=== PATIENT | female | born 1975 | race Caucasian/White ===

== ENCOUNTER 2018-03-02 07:00 | Outpatient (CLI) | payer OTHER | END 2018-03-02 10:00 | disposition home or self-care (01) | LOC: MAMO-SONO 07:00 | DX: Z12.31 Encounter for screening mammogram for malignant neoplasm of breast (principal); N60.22 Fibroadenosis of left breast; R10.2 Pelvic and perineal pain ==

== ENCOUNTER 2018-03-02 09:03 | Outpatient (CLI) | payer OTHER | END 2018-03-02 09:18 | disposition home or self-care (01) | LOC: LAB 09:03 → SONOGRAMA 09:03 → LAB 09:18 | DX: R10.2 Pelvic and perineal pain (principal) ==

== ENCOUNTER 2018-03-05 09:52 | Outpatient (CLI) | payer OTHER | END 2018-03-05 09:58 | disposition home or self-care (01) | LOC: SONOGRAMA 09:52 | DX: N60.42 Mammary duct ectasia of left breast (principal) ==

== ENCOUNTER 2018-04-09 12:11 | Outpatient (CLI) | payer OTHER | END 2018-04-09 12:15 | disposition home or self-care (01) | LOC: SONOGRAMA 12:11 | DX: N60.11 Diffuse cystic mastopathy of right breast (principal); N60.12 Diffuse cystic mastopathy of left breast; N63.22 Unspecified lump in the left breast, upper inner quadrant ==

== ENCOUNTER → 2019-05-30 | Outpatient (CLI) | payer OTHER | END | disposition home or self-care (01) | LOC: MAMO-SONO 08:45 | DX: Z12.31 Encounter for screening mammogram for malignant neoplasm of breast (principal); Z87.898 Personal history of other specified conditions; N60.11 Diffuse cystic mastopathy of right breast; N60.12 Diffuse cystic mastopathy of left breast; N60.22 Fibroadenosis of left breast ==

== ENCOUNTER 2021-02-05 09:17 | Outpatient (CLI) | payer OTHER | END 2021-02-05 09:28 | disposition home or self-care (01) | LOC: MAMO-SONO 09:17 | PROVIDERS: ATTEND Obstetrics & Gynecology | DX: N60.11 Diffuse cystic mastopathy of right breast (principal); Z12.31 Encounter for screening mammogram for malignant neoplasm of breast ==

== ENCOUNTER 2021-06-03 09:32 | Outpatient (CLI) | payer OTHER | END 2021-06-03 10:04 | disposition home or self-care (01) | LOC: SONOGRAMA 09:32 | PROVIDERS: ATTEND Surgery | DX: D24.2 Benign neoplasm of left breast (principal); N60.11 Diffuse cystic mastopathy of right breast; N60.12 Diffuse cystic mastopathy of left breast ==

== ENCOUNTER 2021-09-01 10:46 | Outpatient (CLI) | payer OTHER | END 2021-09-01 10:56 | disposition home or self-care (01) | LOC: SONOGRAMA 10:46 | DX: N93.9 Abnormal uterine and vaginal bleeding, unspecified (principal) ==

== ENCOUNTER 2021-11-24 05:38 | Day surgery (SDC) | payer OTHER ==
[~2021-11-24 05:38] MED LIST: LAMOTRIGINE100 MG PO
== END 2021-11-24 15:45 | disposition home or self-care (01) ==
LOC: CIR.AMB 05:38
PROVIDERS: ATTEND Obstetrics & Gynecology
DX: D27.1 Benign neoplasm of left ovary (principal); Z20.822 Contact with and (suspected) exposure to COVID-19; I10 Essential (primary) hypertension

== ENCOUNTER 2022-03-24 10:24 | Outpatient (CLI) | payer OTHER | END 2022-03-24 11:01 | disposition home or self-care (01) | LOC: MAMO-SONO 10:24 | PROVIDERS: ATTEND Surgery | DX: N60.11 Diffuse cystic mastopathy of right breast (principal); N60.12 Diffuse cystic mastopathy of left breast ==

== ENCOUNTER → 2022-07-03 | Emergency (ER) | payer OTHER ==
[~2022-07-03] VITALS: Ht 165.1 cm; Wt 63.5 kg
[~2022-07-03] MED LIST changes: +KETO10TA2 PO; +ORPHENADRINE C100 MG PO
== END | disposition home or self-care (01) ==
LOC: ER 21:20
DX: S39.91XA Unspecified injury of abdomen, initial encounter (principal); Y33.XXXA Other specified events, undetermined intent, initial encounter; Y93.9 Activity, unspecified; Y92.9 Unspecified place or not applicable

== ENCOUNTER 2023-05-01 09:48 | Outpatient (CLI) | payer OTHER | END 2023-05-01 10:00 | disposition home or self-care (01) | LOC: MAMO-SONO 09:48 | PROVIDERS: ATTEND Obstetrics & Gynecology | DX: N60.11 Diffuse cystic mastopathy of right breast (principal); Z12.31 Encounter for screening mammogram for malignant neoplasm of breast ==

== ENCOUNTER 2024-01-08 10:00 | Outpatient (CLI) | payer OTHER | END 2024-01-08 10:11 | disposition home or self-care (01) | LOC: MAMO-SONO 10:00 | PROVIDERS: ATTEND General Practice | DX: N64.4 Mastodynia (principal) ==

== ENCOUNTER 2025-05-26 10:52 | Outpatient (CLI) | payer OTHER | END 2025-05-26 10:55 | disposition home or self-care (01) | LOC: MAMO-SONO 10:52 | PROVIDERS: ATTEND General Practice | DX: N64.4 Mastodynia (principal) ==